=== PATIENT | female | born 1965 | race Caucasian/White ===

== ENCOUNTER 2018-08-28 19:57 | Emergency (ER) | payer OTHER, BC ==
[2018-08-29] MEDS: ONDANSETRON (ODT) 4 MG TAB ODT (00:16)
[2018-08-29] MEDS: HYDROCODONE/APAP (5/325) TAB PO (00:16)
[2018-08-29] MEDS: morphine 10 MG INJ IM (00:16)
[2018-08-29] MEDS: KETOROLAC 60 MG INJ IM (00:16)
[2018-08-29] MEDS: SOD CHLORIDE 0.9% 1,000 ML IV (01:46)
== END 2018-08-29 03:55 | disposition home or self-care (01) ==
LOC: FTE 19:57
DX: S80.02XA Contusion of left knee, initial encounter (principal); W01.0XXA Fall on same level from slipping, tripping and stumbling without subsequent striking against object, initial encounter; Y92.009 Unspecified place in unspecified non-institutional (private) residence as the place of occurrence of the external cause
CPT/HCPCS: 29505; 72170; 73510; 73562; 96372; 99284-25